=== PATIENT | female | born 1995 | race Two or more races ===

== ENCOUNTER 2017-11-05 22:25 | Emergency (ER) | payer MEDICAID ==
--- NOTE | 2017-11-05 23:18 | NUR ---
STATED "AM GONNA TRY ANOTHER HSP TO SEE HOW LONG THE WAIT WILL BE"
== END 2017-11-05 23:19 | disposition left against medical advice (07) ==
LOC: ER 22:31
DX: Z53.21 Procedure and treatment not carried out due to patient leaving prior to being seen by health care provider (principal)